=== PATIENT | female | born 1980 | race Caucasian/White ===

== ENCOUNTER → 2016-06-21 | Outpatient (CLI) | payer OTHER ==
[2016-06-21 10:38] LABS: CH 33.9; CHCM 34.7; HCT 36.5 % (34.0-46.0); HGB 12.7 gm/dL (11.4-16.0); MCH 34.3 pg (25.0-35.0); MCHC 34.9 g/dL (31.0-37.0); MCV 98.3 fL (80.0-100.0); Mean Platelet Volume 7.3; RBC 3.71 m/uL (3.80-5.40); RDW 13.2 % (11.5-15.5); WBC 7.9 k/uL (3.8-10.6)
== END | disposition home or self-care (01) ==
LOC: LABWHC1 09:20
PROVIDERS: ATTEND Obstetrics & Gynecology
DX: Z34.82 Encounter for supervision of other normal pregnancy, second trimester (principal); Z3A.00 Weeks of gestation of pregnancy not specified
CPT/HCPCS: 36415; 82950; 85027

== ENCOUNTER → 2016-08-09 | Outpatient (CLI) | payer OTHER ==
--- NOTE | 2016-08-09 14:50 | US ---
EXAMINATION TYPE: US OB anatomy transabd DATE OF EXAM: 08/09/2016 1:41 PM COMPARISON: NONE HISTORY: 36-year-old female with advanced Maternal Age OO.529 TECHNIQUE: Transabdominal scanning EXAM MEASUREMENTS: GESTATIONAL AGE / DATING Physician Established: (32 weeks/2 days) EDC: 10/02/2016 Dates by LMP: unknown Dates by First Scan: (32 weeks/1 days) EDC: 10/03/2016 Dates by Current Scan for: (32 weeks/3 days) EDC: 10/01/2016 SURVEY IUP: Single PLACENTA: Fundal PREVIA: No previa GUANACO: 9.7 cm (normal = 7.61 - 27.04) SCIENCE CONSULTANT NOTES: Oligohydramnios, by department standards. Office called with results given to Laurent dee. CERVICAL LENGTH (transabdominal: norm > 3.0cm): 3.2 cm BIOMETRY PRESENTATION: Vertex BPD: 8.3 cm 33 weeks / 2 days HC: 29.5 cm 32 weeks / 4 days AC: 28.5 cm 32 weeks / 4 days FL: 6.3 cm 32 weeks / 4 days ESTIMATED WEIGHT IN GRAMS: 2017 grams ESTIMATED WEIGHT IN LBS/OZS: 4 lbs. 7 oz. WEIGHT PERCENTAGE BASED ON ESTABLISHED DATE: 50 % HC/AC: 1.0 Normal FL/AC: 22 Normal HEART RATE: 126 bpm RHYTHM: Normal ANATOMY SEEN (within normal limits): Lateral Vent (< 1 cm) 0.5 cm Cisterna Magna (< 1.1 cm) 0.9 cm Cerebellum (varies with age) 4.5 cm Midline Falx Cavus Septi Pellucidi Four Chamber Heart Stomach Situs Nose / Lips Diaphragm Kidneys (bilateral) Bladder Three Vessel Cord Arms (bilateral) Legs (bilateral) ANATOMY NOT SEEN OR SUBOPTIMALLY VISUALIZED: due to head low position Choroid Plexus (bilateral) Cord Insert Outflow tracts: LVOT/RVOT Longitudinal Spine - skin line not delineated Transverse Spine SCIENCE CONSULTANT NOTES: Growth according to dates, office called with GUANACO results of 9.7 cm. IMPRESSION: 1. Single live intrauterine with established gestational age of 32 weeks 2 days. Current ul trasound biometry is concordant (32 weeks 3 days) placing the child at the 50th percentile for weight . 2. Note is made of GUANACO at the lower end of normal. 3. A number of structures on the survey were suboptimally visualized due to relatively advanced gestational age and crowding. Visualized structures appear normal. See above.
== END | disposition home or self-care (01) ==
LOC: RADUSWWP 12:52
PROVIDERS: ATTEND Obstetrics & Gynecology
DX: O36.63X0 Maternal care for excessive fetal growth, third trimester, not applicable or unspecified (principal); Z3A.32 32 weeks gestation of pregnancy
CPT/HCPCS: 76811

== ENCOUNTER 2016-09-30 05:56 | Inpatient (IN) | payer OTHER ==
--- NOTE | 2016-09-28 12:40 | P.HPOB ---
History of Present Illness H&P Date: 09/28/16 Chief Complaint: Patient is requesting induction of labor. This patient is a pleasant 36-year-old 4 para 2 female estimated date of confinement 10/03/2016 estimated gestational age 39-4/7 weeks who presents to labor and delivery for requested induction of labor. Patient's care is complicated by advanced maternal age. Patient declined genetic testing. Patient has been monitored with growth ultrasounds and nonstress test been reassuring. Patient has a favorable cervix at term and has requested delivery at this time. Review of Systems Constitutional: Denies chills, Denies fever Ears, nose, mouth and throat: Denies headache, Denies sore throat Cardiovascular: Denies chest pain, Denies shortness of breath Respiratory: Denies cough Gastrointestinal: Reports heartburn Genitourinary: Reports Menstruation: Reports amenorrhea Musculoskeletal: Denies myalgias Integumentary: Denies pruritus, Denies rash Neurological: Denies numbness, Denies weakness Psychiatric: Denies anxiety, Denies depression Endocrine: Denies fatigue, Denies weight change Past Medical History Past Medical History: No Reported History Additional Past Medical History / Comment(s): Patient is Rh- but so is her . No Rhogam has been given. History of Any Multi-Drug Resistant Organisms: None Reported Past Surgical History: Breast Surgery, Orthopedic Surgery Additional Past Surgical History / Comment(s): Patient has had foot surgery on the left foot. Patient's had a D&C. Patient has bilateral breast augmentation. Past Anesthesia/Blood Transfusion Reactions: No Reported Reaction Past Psychological History: No Psychological Hx Reported Smoking Status: Never smoker Past Alcohol Use History: None Reported Past Drug Use History: None Reported Medications and Allergies Home Medications Medication Instructions Recorded Confirmed Type Pnv,Calcium 72/Iron/Folic Acid 1 tab PO DAILY 09/28/16 09/28/16 History [ Plus Tablet] Allergies Allergy/AdvReac Type Severity Reaction Status Date / Time No Known Allergies Allergy Verified 09/28/16 12:37 Exam - OBG Physical Exam Abdomen: bowel sounds normal, no diffuse tenderness, no bruit present, no guarding noted, no hepatomegaly, no splenomegaly, no mass Vulva: both: normal Vagina: normal moisture, no discharge Cervix: no lesion (Cervix of the office was 3 cm and soft.), no discharge Uterus: enlarged (Fundal height is 37 cm.) Results blood work shows she is O-, rubella immune, RPR nonreactive, hepatitis B negative, Glucola was normal, ultrasounds have been normal, group B strep was negative she did not receive RhoGAM because her is Rh-. Assessment and Plan (1) Third trimester Narrative/Plan: This is a pleasant 36-year-old 4 para 2 female 39-4/7 weeks gestation who is admitted to labor and delivery for elective induction of labor. Plan is induction of labor and anticipate normal vaginal delivery. Status: Acute (2) Rh negative status during Status: Acute (3) Elective induction of labor planned Status: Acute
[2016-09-30] MEDS ORDERED: LACTATED RINGERS 1,000 ML IV SCH (06:24)
[2016-09-30] MEDS ORDERED: METHYLERGONOVINE 0.2 MG/ML 1 ML AMP IM PRN (06:24)
[2016-09-30] MEDS ORDERED: CARBOPROST TROMETHAMINE 250 MCG/ML 1 ML AMP IM PRN (06:24)
[2016-09-30] MEDS ORDERED: OXYTOCIN 20 UNITS/1000 ML NS 1,000 ML IV SCH (06:24)
[2016-09-30] MEDS ORDERED: OXYTOCIN 10 UNIT/ML 1 ML VIAL IM PRN (06:24)
[2016-09-30] MEDS ORDERED: LIDOCAINE 1% (PF) 10 MG/ML (30 ML SDV) SQ PRN (06:24)
[2016-09-30] MEDS ORDERED: TERBUTALINE 1 MG/ML VIAL SQ PRN (06:24)
[2016-09-30 06:35] LABS: Basophils % (A) 0 %; CH 34.7; CHCM 35.5; Eosinophils # (A) 0.1 k/uL (0-0.7); Eosinophils % (A) 2 %; HCT 40.7 % (34.0-46.0); HDW 2.71; HGB 13.8 gm/dL (11.4-16.0); Luc # (Auto) 0.11; Luc % (Auto) 1; Lymphocytes # (A) 1.9 k/uL (1.0-4.8); Lymphocytes % (A) 26 %; MCH 33.4 pg (25.0-35.0); MCV 98.2 fL (80.0-100.0); Mean Platelet Volume 7.1; Monocytes # (A) 0.4 k/uL (0-1.0); Monocytes % (A) 6 %; Neutrophils # (A) 4.9 k/uL (1.3-7.7); Neutrophils % (A) 65 %; RBC 4.14 m/uL (3.80-5.40); RDW 13.7 % (11.5-15.5); WBC 7.5 k/uL (3.8-10.6); WBC (Perox) 7.73
[2016-09-30] MEDS ORDERED: fentaNYL (PF) 50 MCG/ML 5 ML AMP ONE (08:00)
[2016-09-30] MEDS ORDERED: SODIUM CHLORIDE 0.9% 100 ML BAG ONE (08:00)
[2016-09-30] MEDS ORDERED: BUPIVACAINE (PF) 0.25% 30 ML VIAL ONE (08:00)
[2016-09-30] MEDS ORDERED: BUPIVACAINE (PF) 0.25% 25 ML, fentaNYL (PF) 200 MCG in SODIUM CHLORIDE 0.9% 71 ML EPIDURAL ONE (08:23)
[2016-09-30] MEDS ORDERED: ACETAMINOPHEN TAB 325 MG TAB PO PRN (10:26)
[2016-09-30] MEDS ORDERED: HYDROCORTISONE 2.5% RECTAL CREAM 30 GM TUBE RECTAL PRN (10:26)
[2016-09-30] MEDS ORDERED: diphenhydrAMINE 25 MG CAP PO PRN (10:26)
[2016-09-30] MEDS ORDERED: BENZOCAINE SPRAY 57GM TOPICAL PRN (10:26)
[2016-09-30] MEDS ORDERED: DIPH,PERTUS(ACELL)TETVAC-LF 0.5 ML VIAL IM ONE (10:26)
[2016-09-30] MEDS ORDERED: Acetaminophen-Codeine 300-30mg TAB PO PRN ×2 (10:26)
[2016-09-30] MEDS ORDERED: BISACODYL 10 MG SUPP RECTAL PRN (10:26)
[2016-09-30] MEDS ORDERED: WITCH HAZEL 1 EACH MED..PAD TOPICAL PRN (10:26)
[2016-09-30] MEDS ORDERED: ZOLPIDEM 5 MG TAB PO PRN (10:26)
[2016-09-30] MEDS ORDERED: SIMETHICONE 80 MG CHEWABLE PO PRN (10:26)
[2016-09-30] MEDS ORDERED: diphenhydrAMINE 50 MG/ML 1 ML VIAL IVP PRN (10:26)
[2016-09-30] MEDS ORDERED: SENNOSIDES-DOCUSATE SODIUM 1 EACH TAB PO SCH (10:26)
[2016-09-30] MEDS ORDERED: LANOLIN CREAM 5 GM TUBE TOPICAL PRN (10:26)
[2016-09-30] MEDS: IBUPROFEN 600 MG TAB PO PRN ×2 (10:51→17:37)
--- NOTE | 2016-09-30 18:17 | P.PROBDLV ---
Vaginal Delivery Note - . Vaginal Delivery Note: Normal vaginal delivery viable male infant Apgars 9 and 9 at 1003 hrs. Please see dictated H&P for intimate details of this patient's admission. Brief summary this is a pleasant 36-year-old 4 para 2 female 39-4/7 weeks gestation who is admitted to labor and delivery for requested induction of labor. Patient admission is 3 cm dilated has artificial rupture membranes for clear fluid. Labor is induced with Pitocin per protocol. Patient progresses and does get an epidural for pain control. Patient thereafter quickly gets to complete pushes the head to the perineum. Posterior perineum is infiltrated with 1% lidocaine and a midline episiotomy is made. At this time we have controlled delivery of the 's head over the perineum. Mouth and nares are bulb suctioned. There is no evidence of a nuchal cord. With gentle downward traction we then have delivery the anterior and posterior shoulder and rest this 's body. Is a vigorous viable male infant Apgars are 9 and 9 delivery time is 1003 hours. After delivery of the the umbilical cord is doubly clamped and cut appears to be trivascular. The infant is laid on the mother's abdomen. Placenta spontaneously delivered intact. Inspection of perineum shows a second-degree midline laceration is repaired with 3-0 Vicryl usual fashion. Excellent reapproximation is noted. Estimated blood loss is 100 mL. There are no complications. All counts are correct 3. Infant and mother stable delivery room.
[2016-10-01] MEDS: IBUPROFEN 600 MG TAB PO PRN ×2 (05:28→12:31)
--- NOTE | 2016-10-01 06:04 | P.PNOBGVD ---
Subjective - Subjective Patient reports: Reports appetite normal, Reports voiding normally, Reports pain well controlled, Reports ambulating normally : doing well Objective - Latest Vital Signs Latest vital signs: Vital Signs Temp Pulse Resp BP 10/01/16 00:00 98.3 F 75 14 98/55 09/30/16 20:00 98.5 F 63 16 113/68 09/30/16 16:00 97.3 F L 66 16 116/65 09/30/16 12:28 96.6 F L 68 16 130/66 09/30/16 11:45 68 16 118/68 09/30/16 11:15 64 16 122/57 09/30/16 11:00 76 16 131/70 09/30/16 10:45 88 16 125/78 09/30/16 10:30 74 16 123/76 09/30/16 10:15 97.2 F L 78 16 122/93 09/30/16 06:33 97.0 F L 64 18 126/79 Intake and Output 09/30/16 09/30/16 10/01/16 14:59 22:59 06:59 Output Total 100 Balance -100 Output: Estimated Blood Loss 100 Other: # Voids 1 1 - Exam Lungs: bilateral: normal Chest: Normal S1, Normal S2 Extremities: Present: normal Abdomen: Present: normal appearance, soft Uterus: Present: normal, firm Assessment and Plan (1) Third trimester Narrative/Plan: day #1. Patient is resting without complaints. Vital signs are stable and she is afebrile. Patient wishes to go home today. My impression this is a normal course. Plan is continue routine care and discharge home later this morning Current Visit: Yes Status: Acute Code(s): Z33.1 - STATE, INCIDENTAL SNOMED Code(s): 82189961 (2) Rh negative status during Current Visit: Yes Status: Acute Code(s): O09.899 - SUPERVISION OF OTHER HIGH RISK PREGNANCIES, UNSP TRIMESTER SNOMED Code(s): 007014968 (3) Elective induction of labor planned Current Visit: Yes Status: Acute Code(s): BPF2756 - SNOMED Code(s): 686193816
--- NOTE | 2016-10-01 06:06 | P.DS ---
Providers Date of admission: 09/30/16 05:56 Expected date of discharge: 10/01/16 Attending physician: Jeff Berg Primary care physician: Stated None - Discharge Diagnosis(es) (1) Third trimester Current Visit: Yes Status: Acute (2) Rh negative status during Current Visit: Yes Status: Acute (3) Elective induction of labor planned Current Visit: Yes Status: Acute Hospital Course: Please see dictated H&P for intimate details of this patient's admission. Brief summary this is a pleasant 36-year-old 4 para 2 female 39-4/7 weeks gestation admitted to labor and delivery for requested induction of labor. Patient quickly goes on to have a vaginal delivery viable male . Please see dictated delivery note. day #1 this patient is without complaints wishes to go home. Patient's felt be stable for discharge home follow up with me in 6 weeks. Procedures: Induction of labor and normal vaginal delivery. Patient Condition at Discharge: Good Plan - Discharge Summary New Discharge Prescriptions: New Acetaminophen-Codeine 300-30mg [Tylenol w/codeine #3] 1 - 2 each PO Q4HR PRN #30 tab PRN Reason: Mild Pain exceeding Tylenol Ibuprofen [Motrin] 600 mg PO Q6HR PRN #40 tab PRN Reason: Mild Pain Or Fever >= 100.5 No Action Pnv,Calcium 72/Iron/Folic Acid [ Plus Tablet] 1 tab PO DAILY Discharge Medication List Pnv,Calcium 72/Iron/Folic Acid [ Plus Tablet] 1 tab PO DAILY 09/28/16 [ History] Acetaminophen-Codeine 300-30mg [Tylenol w/codeine #3] 1 - 2 each PO Q4HR PRN # 30 tab 09/30/16 [Rx] Ibuprofen [Motrin] 600 mg PO Q6HR PRN #40 tab 09/30/16 [Rx] Follow up Appointment(s)/Referral(s): Jeff Berg MD [STAFF PHYSICIAN] - 11/11/16 9:15 am Patient Instructions/Handouts: Vaginal Delivery (DC) Activity/Diet/Wound Care/Special Instructions: No intercourse or anything per vagina for 6 weeks. Please call if any fever, chills, excessive vaginal bleeding, and/or abdominal pain. Discharge Disposition: HOME SELF-CARE
[2016-10-01 09:26] VITALS: BP 117/68; PULSE 72; RESP 16; TEMP 98.2
== END 2016-10-01 13:20 | disposition home or self-care (01) | DRG 775 ==
LOC: 4FBP 05:56
PROVIDERS: ADMIT Obstetrics & Gynecology; ATTEND Obstetrics & Gynecology
PROC: 10E0XZZ Delivery of Products of Conception, External Approach (ICD-10-PCS; principal; 2016-09-30)
PROC: 0KQM0ZZ Repair Perineum Muscle, Open Approach (ICD-10-PCS; 2016-09-30)
PROC: 3E033VJ Introduction of Other Hormone into Peripheral Vein, Percutaneous Approach (ICD-10-PCS; 2016-09-30)
PROC: 00HU33Z Insertion of Infusion Device into Spinal Canal, Percutaneous Approach (ICD-10-PCS; 2016-09-30)
PROC: 3E0R3CZ (ICD-10-PCS; 2016-09-30)
PROC: 3E0234Z Introduction of Serum, Toxoid and Vaccine into Muscle, Percutaneous Approach (ICD-10-PCS; 2016-09-30)
DX: O26.893 Other specified pregnancy related conditions, third trimester (principal); Z23 Encounter for immunization; Z37.0 Single live birth; Z3A.39 39 weeks gestation of pregnancy; Z67.41 Type O blood, Rh negative; O70.1 Second degree perineal laceration during delivery; Z79.899 Other long term (current) drug therapy
CPT/HCPCS: 85025; 88307; 90471; 90715

== ENCOUNTER → 2020-08-21 | Outpatient (CLI) | payer OTHER ==
[2020-08-21 19:20] LABS: Basophils # (A) 0.02 X 10*3/uL (0.00-0.10); Basophils % (A) 0.4 %; Eosinophils # (A) 0.03 X 10*3/uL (0.04-0.35); Eosinophils % (A) 0.7 %; HCT 39.2 % (37.2-46.3); HGB 13.1 g/dL (12.0-15.0); Lymphocytes # (A) 1.67 X 10*3/uL (0.90-5.00); Lymphocytes % (A) 36.5 %; MCH 32.3 pg (27.0-32.0); MCHC 33.4 g/dL (32.0-37.0); MCV 96.8 fL (80.0-97.0); Mean Platelet Volume 9.6 fL (9.5-12.2); Monocytes # (A) 0.33 X 10*3/uL (0.20-1.00); Monocytes % (A) 7.2 %; Neutrophils # (A) 2.52 X 10*3/uL (1.80-7.70); Platelet Count 223 X 10*3/uL (140-440); RBC 4.05 X 10*6/uL (4.10-5.20); RDW 12.3 % (11.5-14.5); WBC 4.58 X 10*3/uL (4.50-10.00)
[2020-08-22 03:28] LABS: ALT 14 U/L (8-44); AST 19 U/L (13-35); African American GFR (CKD) 140.3 (60.0-200.0); Albumin/Globulin Ratio 2.41 (1.60-3.17); Alkaline Phosphatase 38 U/L (41-126); Calcium 8.6 mg/dL (8.7-10.3); Carbon Dioxide 23.5 mmol/L (21.6-31.8); Chloride 111 mmol/L (96-109); Chol/HDL Ratio 2.28; Cholesterol 157 mg/dL (0-200); Globulin 1.7 g/dL (1.6-3.3); Glucose 85 mg/dL (70-110); Non-African American GFR(CKD) 121.1 (60.0-200.0); Potassium 4.3 mmol/L (3.5-5.5); Sodium 142 mmol/L (135-145); Total Bilirubin 0.5 mg/dL (0.2-1.2); Total Protein 5.8 g/dL (6.2-8.2); Triglycerides <50.0 mg/dL (0.0-149.0)
== END | disposition home or self-care (01) ==
LOC: LABWHC1 12:18
PROVIDERS: ATTEND Internal Medicine
DX: Z00.00 Encounter for general adult medical examination without abnormal findings (principal); E55.9 Vitamin D deficiency, unspecified
CPT/HCPCS: 36415; 80053; 80061; 82306; 84443; 85025

== ENCOUNTER → 2020-08-21 | Outpatient (CLI) | payer OTHER ==
--- NOTE | 2020-08-22 09:21 | MM ---
Reason for exam: screening (asymptomatic). History: Family history of breast cancer in maternal aunt. Retro-pectoral saline implants in both breasts, 2018. Physical Findings: A clinical breast exam by your physician is recommended on an annual basis and results should be correlated with mammographic findings. MG 3D Screen Mammo Imp/Cad Bilateral CC, MLO, and ID view(s) were taken. No prior studies available for comparison. There are scattered fibroglandular densities. There is no discrete abnormality. Bilateral implants are intact. ASSESSMENT: Benign, BI-RAD 2 RECOMMENDATION: Routine screening mammogram of both breasts in 1 year.
== END | disposition home or self-care (01) ==
LOC: RADMAMWWP 05-29 13:49
PROVIDERS: ATTEND Obstetrics & Gynecology
DX: Z12.31 Encounter for screening mammogram for malignant neoplasm of breast (principal); Z80.3 Family history of malignant neoplasm of breast
CPT/HCPCS: 77063; 77067

== ENCOUNTER → 2020-10-27 | Outpatient (CLI) | payer OTHER | END | disposition home or self-care (01) ==

== ENCOUNTER → 2020-12-09 | Outpatient (CLI) | payer OTHER ==
[2020-12-09 16:20] LABS: Basophils % (A) 1 %; Eosinophils # (A) 0.1 k/uL (0-0.7); Eosinophils % (A) 1 %; HCT 38.5 % (34.0-46.0); HGB 13.7 gm/dL (11.4-16.0); Lymphocytes # (A) 1.5 k/uL (1.0-4.8); Lymphocytes % (A) 27 %; MCHC 35.5 g/dL (31.0-37.0); MCV 95.8 fL (80.0-100.0); Mean Platelet Volume 6.7; Monocytes # (A) 0.3 k/uL (0-1.0); Monocytes % (A) 5 %; Neutrophils # (A) 3.7 k/uL (1.3-7.7); Neutrophils % (A) 65 %; Platelet Count 231 k/uL (150-450); RBC 4.02 m/uL (3.80-5.40); WBC 5.7 k/uL (3.8-10.6)
== END | disposition home or self-care (01) ==
LOC: LABPAT 15:49
PROVIDERS: ATTEND Orthopaedic Surgery
DX: Z01.812 Encounter for preprocedural laboratory examination (principal); M25.562 Pain in left knee
CPT/HCPCS: 80051; 85025

== ENCOUNTER → 2020-12-09 | Outpatient (CLI) | payer OTHER ==
--- NOTE | 2020-12-09 12:43 | MR ---
EXAMINATION TYPE: MR knee RT wo con DATE OF EXAM: 12/09/2020 COMPARISON: Outside right knee x-ray October 14, 2020 HISTORY: Right knee pain and swelling for 4 years. TECHNIQUE: Multiplanar, multisequence imaging of the right knee is performed without IV contrast. FINDINGS: MEDIAL MENISCUS: Some medial extrusion medial meniscus coronal image 19. Anterior and posterior horns are intact without tear. LATERAL MENISCUS: There is increased signal anterior horn lateral meniscus extending to articular case face. There is slight truncation or extension into central body. CRUCIATE LIGAMENTS: The anterior and posterior cruciate ligaments are intact. There is increased sign al in the distal anterior cruciate ligament seen best coronal image 19. COLLATERAL LIGAMENTS: The medial collateral ligament and lateral collateral ligament complex are inta ct and unremarkable. EXTENSOR MECHANISM: Visualized quadriceps and patellar tendons are intact. Increased fluid signal nancy p Hoffa's fat pad likely extension from ACL findings. EFFUSION: Small to moderate size suprapatellar joint effusion extends laterally. POPLITEAL CYST: No popliteal/maya cyst. TRICOMPARTMENT SPACES: Mild tricompartment joint space loss and mild spurring. CARTILAGE: Tricompartment articular cartilage preserved. BONE MARROW SIGNAL: Some heterogeneous T2 signal or edema central tibial plateau near the ACL inserti on. OTHER: Multi septated cystic change posterior distal femoral level at level of distal metaphysis med ial more prominent than lateral aspects with partial tearing of the origin of the medial head of beatris rocnemius is thought present sagittal image 11. IMPRESSION: 1. Oblique full thickness lateral meniscus meniscus with some extension into the central body. 2. Small to moderate size suprapatellar joint effusion extending laterally. 3. Mild tricompartment degenerative changes as detailed above. 4. Partial tearing and sprain injury of the distal ACL as detailed above. No full-thickness tear note d. 5. Posterior distal femoral ganglion cyst with partial tearing of the origin of the medial head of th e gastrocnemius tendon.
== END | disposition home or self-care (01) ==
LOC: RADMRIMAIN 11:37
PROVIDERS: ATTEND Orthopaedic Surgery
DX: S83.511A Sprain of anterior cruciate ligament of right knee, initial encounter (principal); S86.111A Strain of other muscle(s) and tendon(s) of posterior muscle group at lower leg level, right leg, initial encounter; M17.11 Unilateral primary osteoarthritis, right knee; M67.461 Ganglion, right knee

== ENCOUNTER 2020-12-18 11:52 | Day surgery (SDC) | payer OTHER ==
[2020-12-12 13:01] VITALS: BMI 20.9
--- NOTE | 2020-12-17 20:40 | HP ---
HISTORY AND PHYSICAL DATE OF SURGERY: 12/18/2020 Marilu Foote is a 40-year-old patient seen with progressive left knee pain. We discussed options for treatment. She elected to proceed with arthroscopy. Consent was obtained. PAST MEDICAL HISTORY: Noncontributory. SURGICAL HISTORY: Breast augmentation, D and C. DAILY MEDICATIONS: Ibuprofen. ALLERGIES: NONE. SOCIAL HISTORY: She denies tobacco use. PHYSICAL EVALUATION OF THE LEFT KNEE: Her range of motion is negative 3 to 120. Moderate effusion. Tenderness along the medial and lateral joint lines. Positive medial Natividad's. Positive lateral Natividad's. Ligaments stable. Hip rotation without pain. Distal neurovascular exam is intact. RADIOGRAPHS: Radiographs of the left knee revealed mild osteoarthritis. MRI of the left knee revealed medial and lateral meniscal tears with a large effusion. IMPRESSION: Internal derangement of left knee with medial and lateral meniscal tears. PLAN: Left knee arthroscopy with partial meniscectomy and debridement. MMODL / IJN: [id number] /
[~2020-12-18 11:52] MED LIST: DEXAMETHASONE SOD PHOSPHATE 4 MG/ML 1 ML VIAL IV ONE; LACTATED RINGERS 1,000 ML IV SCH; ONDANSETRON 4 MG/2 ML VIAL IVP ONE
[2020-12-18 12:19] VITALS: RESP 16
[2020-12-18] MEDS ORDERED: SCOPOLAMINE 1.5MG/72HR PATCH TRANSDERM ONE (12:36)
[2020-12-18] MEDS ORDERED: LIDOCAINE 1% INJ 10MG/ML (20 ML MDV) ONE (13:06)
[2020-12-18] MEDS ORDERED: fentaNYL (PF) 50 MCG/ML 2 ML AMP ONE (13:06)
[2020-12-18] MEDS ORDERED: MIDAZOLAM 2 MG/2 ML VIAL ONE (13:06)
[2020-12-18] MEDS ORDERED: PROPOFOL 10 MG/ML 20 ML VIAL IV ONE (13:06)
[2020-12-18] MEDS ORDERED: KETOROLAC 15 MG/ML 1 ML VIAL ONE (13:06)
[2020-12-18] MEDS ORDERED: BUPIVACAINE (PF) 0.25% 30 ML VIAL INTRAARTIC ONE (13:11)
--- NOTE | 2020-12-18 13:58 | P.OP ---
Date of Procedure: 12/18/20 Preoperative Diagnosis: Internal derangement left knee Postoperative Diagnosis: 1. Tear lateral meniscus left knee 2. Partial ACL tear left knee 3. Reactive synovitis medial, lateral and suprapatellar compartments left knee 4. 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 Grade 1 chondromalacia patella left knee Procedure(s) Performed: 1. Arthroscopic partial lateral meniscectomy left knee 2. Arthroscopic debridement partial ACL tear left knee 3. Arthroscopic partial synovectomy medial, lateral and suprapatellar compartments left knee 4. Arthroscopic chondroplasty lateral tibial plateau left knee 5. Arthroscopic chondroplasty patella left knee Anesthesia: TYRONEA, local Surgeon: Vishnu Arguelles Estimated Blood Loss (ml): 5 Pathology: none sent Condition: stable Disposition: PACU Indications for Procedure: 40-year-old patient seen with progressive left knee pain. After treatment options were discussed, she elected to proceed with arthroscopy. Operative Findings: See description of procedure Description of Procedure: Patient was taken to the operative suite. Patient underwent a general anesthetic by the department of anesthesia. Patient was given preoperative antibiotics. The left lower extremity was placed in a well-padded arthroscopic leg joe. The left leg was prepped and draped in the normal sterile orthopedic fashion. A lateral parapatellar and suprapatellar incision was made. Trochars were inserted. Arthroscopy was initiated. Suprapatellar pouch revealed diffuse thick reactive synovitis. The patellofemoral joint appeared to articulate congruently. There was grade 1 chondromalacia of the patella. The scope was guided into the medial gutter. No loose bodies or plica were identified. The scope was then guided into the medial compartment. A medial parapatellar incision was made. Trocar inserted followed by probe. The medial meniscus was probed and found to be stable. There was no significant chondromalacia present. There was thick reactive synovitis anteriorly. I introduced a motorized shaver and performed a partial synovectomy. Shaver was removed. There appeared be good decompression of the synovitis. Scope and probe were then guided into the intercondylar notch. There was partial tearing of the ACL. I introduced a motorized shaver and debrided the torn fibers. The residual ACL appeared somewhat lax however there were residual fibers represented about 50% of the ACL. The PCL was stable. The scope and probe were then guided into lateral compartment. There was a complex tear involving the anterior horn and midbody of the lateral meniscus. There were grade 2/3 chondral moist changes of the tibial plateau without osteochondral tears present. There was thick reactive synovitis anteriorly. I performed a partial lateral meniscectomy getting down to stable meniscal tissue. I performed a chondroplasty of the tibial plateau getting down to stable osteochondral tissue. I performed a partial synovectomy decompressing the reactive synovitis. The residual meniscus was stable with at this point quite diminutive. The residual osteochondral surface of the tibial plateau appeared stable. There was good decompression of the synovitis. The scope was in guided back into the suprapatellar compartment. I introduced a motorized shaver into the super patellar compartment. I debrided some piecemeal fragments of meniscus that I encountered. I performed a partial synovectomy decompressing the reactive synovitis within the suprapatellar compartment. I now performed a chondroplasty of the patella. The shaver was removed. There was good decompression of the synovitis. The residual osteochondral surface of the patella appeared stable. I took one more look on the entire knee, no residual debris. Instruments were now removed from the joint. The joint was infiltrated with .25% Marcaine. Steri-Strips were applied to the portal sites. Sterile dressings were applied. The patient was placed into a GARCIA hose. No tourniquet was utilized. The patient was awakened, transferred to a bed and taken to recovery stable satisfactory condition.
[2020-12-18 14:07] VITALS: TEMP 97
[2020-12-18] MEDS: HYDROmorphone 0.5 MG/0.5 ML SYRINGE IVP PRN ×2 (14:12→14:27)
[2020-12-18] MEDS ORDERED: LACTATED RINGERS 1,000 ML IV ONE (14:29)
[2020-12-18 15:01] VITALS: PULSE 75
[2020-12-18 15:19] VITALS: BP 125/84
== END 2020-12-18 15:59 | disposition home or self-care (01) ==
LOC: OR 11:52
PROVIDERS: ATTEND Orthopaedic Surgery
DX: M22.42 Chondromalacia patellae, left knee (principal); S83.282A Other tear of lateral meniscus, current injury, left knee, initial encounter; S83.512A Sprain of anterior cruciate ligament of left knee, initial encounter; M65.862 Other synovitis and tenosynovitis, left lower leg; M17.12 Unilateral primary osteoarthritis, left knee; F41.9 Anxiety disorder, unspecified; J45.990 Exercise induced bronchospasm; Z79.899 Other long term (current) drug therapy; Z98.890 Other specified postprocedural states
CPT/HCPCS: 29881; 29876; 81025; J2250; J1100; J2405; J0690; J2001; J3010; J1885; J2704; J1170

== ENCOUNTER → 2021-10-22 | Outpatient (CLI) | payer OTHER ==
--- NOTE | 2021-10-26 17:26 | MM ---
Reason for Exam: Screening (asymptomatic). Last mammogram was performed 1 year(s) and 2 month(s) ago. Patient History: Menarche at age 16. First Full-Term at age 30. Late child-bearing (after 30). Patient has history of breast feeding. 2018, Bilateral Implants. Maternal aunt had breast cancer, age 35. Risk Values: Tierra 5 year model risk: 0.8%. NCI Lifetime model risk: 12.4%. Prior Study Comparison: 08/21/2020 Bilateral Screening Mammogram, [facility]. Tissue Density: The breast tissue is heterogeneously dense. This may lower the sensitivity of mammography. Findings: Analyzed By CAD. There are retropectoral saline implants on both sides. Asymmetric density far posterior central left MLO view is more defined additional views are recommended. Otherwise, no significant change. Overall Assessment: Incomplete: need additional imaging evaluation, BI-RAD 0 Management: Special View Mammogram of the left breast. Diagnostic Breast Ultrasound of the left breast. 1. Additional views left breast to include spot 3-D MLO, 3-D lateral, and 3-D XCCL views. 2. Whole left breast ultrasound given the dense breast tissue. Electronically signed and approved by: Michela Rawls M.D. Radiologist
== END | disposition home or self-care (01) ==
LOC: RADMAMWWP 09:06
PROVIDERS: ATTEND Obstetrics & Gynecology
DX: Z12.31 Encounter for screening mammogram for malignant neoplasm of breast (principal); Z80.3 Family history of malignant neoplasm of breast
CPT/HCPCS: 77063; 77067

== ENCOUNTER → 2021-11-04 | Outpatient (CLI) | payer OTHER ==
--- NOTE | 2021-11-05 14:44 | USB ---
Reason for Exam: Additional evaluation requested from abnormal screening. Last screening mammogram was performed less than 1 month ago. Patient History: Menarche at age 16. First Full-Term at age 30. Late child-bearing (after 30). Patient has history of breast feeding. 2018, Bilateral Implants. Maternal aunt had breast cancer, age 35. Risk Values: Tierra 5 year model risk: 0.8%. NCI Lifetime model risk: 12.4%. Prior Study Comparison: 08/21/2020 Bilateral Screening Mammogram, [facility]. 10/22/2021 Bilateral MG 3D screen mammo imp/cad., [facility]. Tissue Density: Left: The breast tissue is extremely dense which could obscure a lesion on mammography. Findings: Analyzed By CAD. Mammogram No definitive new lesion on additional views. Background extremely dense tissue noted. Technique: Method: Whole Breast Handheld. Findings: The whole breast of the left breast and the axilla of the left breast were scanned. Whole left breast ultrasound including evaluation of subareolar and axillary regions shows partial visualization of the outer contour of known breast implant. No concerning solid or cystic mass or abnormal fluid collection is seen. Overall Assessment: Negative, BI-RAD 1 Assessment: MG 3D work up w/cad LT - Left: Negative, BI-RAD 1. US breast workup LT - Left: Negative, BI-RAD 1. Management: Screening Mammogram of both breasts in 1 year. Back on schedule. Some advise bilateral breast ultrasound surveillance in patients with background dense tissue. Results were given to the patient verbally at the time of exam. Electronically signed and approved by: Wade Perez M.D.
== END | disposition home or self-care (01) ==
LOC: RADMAMWWP 13:32
PROVIDERS: ATTEND Obstetrics & Gynecology
DX: R92.8 Other abnormal and inconclusive findings on diagnostic imaging of breast (principal); Z80.3 Family history of malignant neoplasm of breast
CPT/HCPCS: 77061; 77065

== ENCOUNTER → 2022-11-11 | Outpatient (CLI) | payer OTHER ==
[2022-11-11 13:45] LABS: ALT 13 U/L (8-44); AST 19 U/L (13-35); Albumin 4.2 d/dL (3.8-4.9); Albumin/Globulin Ratio 2.21 Ratio (1.60-3.17); Alkaline Phosphatase 43 U/L (41-126); BUN/Creat Ratio 20.71 Ratio (12.00-20.00); Blood Urea Nitrogen 14.5 mg/dL (9.0-27.0); Carbon Dioxide 27.3 mmol/L (21.6-31.8); Chloride 104 mmol/L (96-109); Chol/HDL Ratio 2.34 Ratio; Globulin 1.9 d/dL (1.6-3.3); Glucose 92 mg/dL (70-110); LDL Cholesterol,Calculated 93.3 mg/dL (0.0-131.0); Potassium 4.6 mmol/L (3.5-5.5); Sodium 139 mmol/L (135-145); Total Bilirubin 0.4 mg/dL (0.3-1.2); Total Protein 6.1 d/dL (6.2-8.2)
[2022-11-11 14:26] LABS: Basophils # (A) 0.02 X 10*3/uL (0.00-0.10); Basophils % (A) 0.4 %; Eosinophils # (A) 0.24 X 10*3/uL (0.04-0.35); Eosinophils % (A) 4.8 %; HCT 41.5 % (37.2-46.3); HGB 14.3 d/dL (12.0-15.0); Lymphocytes # (A) 1.57 X 10*3/uL (0.90-5.00); Lymphocytes % (A) 31.2 %; MCH 32.6 pg (27.0-32.0); MCHC 34.5 d/dL (32.0-37.0); MCV 94.7 FL (80.0-97.0); Mean Platelet Volume 9.4 FL (9.5-12.2); Monocytes # (A) 0.39 X 10*3/uL (0.20-1.00); Monocytes % (A) 7.7 %; NRBC Per 100 WBC 0 X 10*3/uL (0.00-0.01); Neutrophils # (A) 2.81 X 10*3/uL (1.80-7.70); Neutrophils % (A) 55.7 %; Platelet Count 240 X 10*3/uL (140-440); RBC 4.38 X 10*6/uL (4.10-5.20); RDW 12.1 % (11.5-14.5); WBC 5.04 X 10*3/uL (4.50-10.00)
== END | disposition home or self-care (01) ==
LOC: LABWHC1 08:08
PROVIDERS: ATTEND Internal Medicine
DX: Z00.00 Encounter for general adult medical examination without abnormal findings (principal); Z11.59 Encounter for screening for other viral diseases; I87.2 Venous insufficiency (chronic) (peripheral)
CPT/HCPCS: 36415; 80053; 80061; 82533; 84443; 85025; 86803

== ENCOUNTER → 2022-11-16 | Outpatient (CLI) | payer OTHER ==
--- NOTE | 2022-11-17 20:26 | MM ---
Reason for Exam: Screening (asymptomatic). Last mammogram was performed 1 year(s) and 1 month(s) ago. Patient History: Menarche at age 16. First Full-Term at age 30. Late child-bearing (after 30). Patient has history of breast feeding. 2018, Bilateral Implants. Maternal aunt had breast cancer, age 35. Last menstrual period: 10/29/2022 Risk Values: Tierra 5 year model risk: 0.8%. NCI Lifetime model risk: 12.2%. Prior Study Comparison: 08/21/2020 Bilateral Screening Mammogram, [facility]. 10/22/2021 Bilateral MG 3D screen mammo imp/cad., [facility]. 11/04/2021 Left MG 3D work up w/cad LT, [facility]. Tissue Density: The breast tissue is heterogeneously dense. This may lower the sensitivity of mammography. Findings: Analyzed By CAD. Bilateral retropectoral breast implants are present. There is asymmetric density or posterior left MLO view located centrally that is more defined from prior exams. It incompletely disperses on 3-D images. Further evaluation recommended. There is asymmetrically denser left breast tissue noted. Otherwise, no significant change. Overall Assessment: Incomplete: need additional imaging evaluation, BI-RAD 0 Management: Special View Mammogram of the left breast. Diagnostic Breast Ultrasound of the left breast. Additional views to include spot 3-D MLO and 3-D lateral views.. Additional whole left breast ultrasound given asymmetrically denser left breast tissue. [facility] will attempt to contact patient to return for supplemental views and ultrasound if indicated. Electronically signed and approved by: Michela Rawls M.D. Radiologist
== END | disposition home or self-care (01) ==
LOC: RADMAMWWP 10:48
PROVIDERS: ATTEND Internal Medicine
DX: Z12.31 Encounter for screening mammogram for malignant neoplasm of breast (principal); Z80.3 Family history of malignant neoplasm of breast
CPT/HCPCS: 77063; 77067

== ENCOUNTER → 2022-11-22 | Outpatient (CLI) | payer OTHER ==
--- NOTE | 2022-11-22 14:01 | MM ---
Reason for Exam: Additional evaluation requested from abnormal screening. Last screening mammogram was performed less than 1 month ago. Patient History: Menarche at age 16. First Full-Term at age 30. Late child-bearing (after 30). Patient has history of breast feeding. 2018, Bilateral Implants. Maternal aunt had breast cancer, age 35. Risk Values: Tierra 5 year model risk: 0.8%. NCI Lifetime model risk: 12.2%. Prior Study Comparison: 10/22/2021 Bilateral MG 3D screen mammo imp/cad., [facility]. 11/04/2021 Left MG 3D work up w/cad LT, [facility]. 11/16/2022 Bilateral MG 3D screen mammo imp/cad., [facility]. Tissue Density: Left: The breast tissue is heterogeneously dense. This may lower the sensitivity of mammography. Findings: Analyzed By CAD. Left breast implant. Area of concern compresses out. No new suspicious masses, calcifications or distortions. Overall Assessment: Negative, BI-RAD 1 Management: Diagnostic Breast Ultrasound of the left breast. Results were given to the patient verbally at the time of exam. Patient should continue monthly self-breast exams. A clinical breast exam by your physician is recommended on an annual basis. This exam should not preclude additional follow-up of suspicious palpable abnormalities. Note on Tierra scores and lifetime risk: 1. A Tierra score greater than 3% is considered moderate risk. If this is the case, consider specialist referral to assess eligibility for a risk reducing agent. 2. If overall lifetime risk for the development of breast cancer is 20% or higher, the patient may qualify for future screening with alternating mammogram and breast MRI. Electronically signed and approved by: Marlo Stover DO
--- NOTE | 2022-11-22 14:27 | USB ---
Reason for Exam: Additional evaluation requested from abnormal screening. Patient History: Menarche at age 16. First Full-Term at age 30. Late child-bearing (after 30). Patient has history of breast feeding. 2018, Bilateral Implants. Maternal aunt had breast cancer, age 35. Risk Values: Tierra 5 year model risk: 0.8%. NCI Lifetime model risk: 12.2%. Technique: Method: Whole Breast Handheld. Prior Study Comparison: 10/22/2021 Bilateral MG 3D screen mammo imp/cad., [facility]. 11/04/2021 Left MG 3D work up w/cad LT, [facility]. 11/16/2022 Bilateral MG 3D screen mammo imp/cad., [facility]. Findings: The whole breast of the left breast, the axilla of the left breast and the retroareolar of the left breast were scanned. Imaged: Ultrasound imaging of: Area of concern, retroareolar region and axilla. No evidence for organizing fluid collection or mass. Overall Assessment: Negative, BI-RAD 1 Management: Screening Mammogram of both breasts in 1 year. A clinical breast exam by your physician is recommended on an annual basis and results should be correlated with mammographic findings. This exam should not preclude additional follow-up of suspicious palpable abnormalities. Results were given to the patient verbally at the time of exam. Electronically signed and approved by: Marlo Stover DO
== END | disposition home or self-care (01) ==
LOC: RADMAMWWP 13:38
PROVIDERS: ATTEND Internal Medicine
DX: R92.8 Other abnormal and inconclusive findings on diagnostic imaging of breast (principal); Z80.3 Family history of malignant neoplasm of breast
CPT/HCPCS: 77061; 77065

== ENCOUNTER → 2022-12-06 | Outpatient (CLI) | payer OTHER ==
--- NOTE | 2022-12-06 16:55 | CA ---
Transthoracic Echo Report Name: Marilu Foote Age: 42 Gender: F : 1980 Exam Date: 12/06/2022 15:05 Exam Location: [facility] Ht (in): 65 Wt (lb): 133 Ordering Physician: Elgin Knox MD Attending/Referring Phys: Elgin Knox MD Process Safety Specialist Ninfa Peace, RD Procedure CPT: Indications: I87.2 VENOUS INSUFFICIENCY (CHRONIC) (PERIPHERAL) Cardiac Hx: Technical Quality: Good Contrast 1: Total Dose (mL): Contrast 2: Total Dose (mL): MEASUREMENTS (Male / Female) Normal Values 2D ECHO LV Diastolic Diameter PLAX 4.4 cm 4.2 - 5.9 / 3.9 - 5.3 cm LV Systolic Diameter PLAX 3.0 cm IVS Diastolic Thickness 0.9 cm 0.6 - 1.0 / 0.6 - 0.9 cm LVPW Diastolic Thickness 0.9 cm 0.6 - 1.0 / 0.6 - 0.9 cm LV Relative Wall Thickness 0.4 RV Internal Dim ED PLAX 2.4 cm LA Systolic Diameter LX 3.1 cm 3.0 - 4.0 / 2.7 - 3.8 cm LV Diastolic Volume MOD 4C 58.2 cm??? LV Systolic Volume MOD 4C 17.4 cm??? LV Ejection Fraction MOD 4C 70.1 % LV Cardiac Index MOD 4C 1492.9 cm???/min???m??? LV Diastolic Length 4C 7.2 cm LV Systolic Length 4C 5.6 cm LV Diastolic Volume MOD 2C 56.5 cm??? LV Systolic Volume MOD 2C 21.2 cm??? LV Ejection Fraction MOD 2C 62.4 % LV Cardiac Index MOD 2C 1291.0 cm???/min???m??? LV Diastolic Length 2C 8.0 cm LV Systolic Length 2C 6.6 cm LA Volume 36.2 cm??? 18 - 58 / 22 - 52 cm??? DOPPLER AV Peak Velocity 122.4 cm/s AV Peak Gradient 6.0 mmHg MV Area PHT 3.5 cm??? Mitral E Point Velocity 98.7 cm/s Mitral A Point Velocity 50.8 cm/s Mitral E to A Ratio 1.9 MV Deceleration Time 214.8 ms MV E' Velocity 10.0 cm/s Mitral E to MV E' Ratio 9.8 TR Peak Velocity 209.2 cm/s TR Peak Gradient 17.5 mmHg Right Ventricular Systolic Press 22.2 mmHg FINDINGS Left Ventricle Left ventricular ejection fraction is estimated at 60-65 %. Left ventricular cavity size normal. Left ventricular wall thickness normal. Normal left ventricular wall motion. Right Ventricle Normal right ventricular size. Right ventricular systolic pressure within normal limits. Right Atrium Normal right atrial size. Left Atrium Normal left atrial size. Mitral Valve Structurally normal mitral valve. Trace mitral regurgitation. Aortic Valve Trileaflet aortic valve. Trace aortic regurgitation. Tricuspid Valve Structurally normal tricuspid valve. Mild tricuspid regurgitation. Pulmonic Valve Structurally normal pulmonic valve. No pulmonic regurgitation. Pericardium No pericardial effusion. Aorta Normal size aortic root and proximal ascending aorta. CONCLUSIONS Normal LV function Previewed by: Dr. Alejandro Clayton MD (Electronically Signed) Final Date: 06 December 2022 16:54
== END | disposition home or self-care (01) ==
LOC: RADECHMAIN 14:58
PROVIDERS: ATTEND Internal Medicine
DX: I87.2 Venous insufficiency (chronic) (peripheral) (principal)
CPT/HCPCS: 93306

== ENCOUNTER → 2024-03-19 | Outpatient (CLI) | payer OTHER ==
--- NOTE | 2024-03-20 19:14 | MM ---
Reason for Exam: Screening (asymptomatic). Last mammogram was performed 1 year(s) and 4 month(s) ago. Patient History: Menarche at age 16. First Full-Term at age 30. Late child-bearing (after 30). Patient has history of breast feeding. 2018, Bilateral Implants. Maternal aunt had breast cancer, age 35. Last menstrual period: 03/10/2024 Risk Values: Tierra 5 year model risk: 0.9%. NCI Lifetime model risk: 12.1%. Prior Study Comparison: 11/04/2021 Left MG 3D work up w/cad LT, [facility]. 11/16/2022 Bilateral MG 3D screen mammo imp/cad., [facility]. 11/22/2022 Left MG 3D work up w/cad LT, [facility]. Tissue Density: The breasts are heterogeneously dense, which may obscure small masses. Findings: Analyzed By CAD. Bilateral retropectoral saline implants are redemonstrated. Asymmetric density posterior inferior right MLO view not clearly seen previously, likely not pulled into the field of view on prior studies. Additional asymmetric density posterior lateral left cc view appears more pronounced. This may represent a prominent island of tissue but further evaluation is recommended. Otherwise, no significant change. Overall Assessment: Incomplete: need additional imaging evaluation, BI-RAD 0 Management: Special View Mammogram of both breasts. Diagnostic Breast Ultrasound of both breasts. [facility] will attempt to contact patient to return for supplemental views and ultrasound if indicated. [facility], , 03/20/2024 7:11 PM. Electronically signed and approved by: Michela Rawls M.D. Radiologist
== END | disposition home or self-care (01) ==
LOC: RADMAMWWP 12:54
PROVIDERS: ATTEND Internal Medicine
DX: Z12.31 Encounter for screening mammogram for malignant neoplasm of breast (principal); Z80.3 Family history of malignant neoplasm of breast; R92.333 Mammographic heterogeneous density, bilateral breasts
CPT/HCPCS: 77063; 77067

== ENCOUNTER → 2024-03-29 | Outpatient (CLI) | payer OTHER ==
--- NOTE | 2024-03-29 10:58 | MM ---
Reason for Exam: Additional evaluation requested from abnormal screening. Last screening mammogram was performed less than 1 month ago. Patient History: Menarche at age 16. First Full-Term at age 30. Late child-bearing (after 30). Patient has history of breast feeding. 2018, Bilateral Implants. Maternal aunt had breast cancer, age 35. Risk Values: Tierra 5 year model risk: 0.9%. NCI Lifetime model risk: 12.1%. Prior Study Comparison: 11/22/2022 Left MG 3D work up w/cad LT, [facility]. 03/19/2024 Bilateral MG 3D screen mammo imp/cad., [facility]. Tissue Density: The breasts are heterogeneously dense, which may obscure small masses. Findings: Analyzed By CAD. On the right, the inferior posterior asymmetric density disperses. No persisting abnormality seen. On the left, unable to adequately image the lateral density due to far posterior positioning. Ultrasound recommended. Overall Assessment: Incomplete: need additional imaging evaluation, BI-RAD 0 Management: Diagnostic Breast Ultrasound of the left breast. [facility], , 03/29/2024 10:55 AM. Electronically signed and approved by: Michela Rawls M.D. Radiologist
--- NOTE | 2024-03-29 11:15 | USB ---
Patient History: Menarche at age 16. First Full-Term at age 30. Late child-bearing (after 30). Patient has history of breast feeding. 2018, Bilateral Implants. Maternal aunt had breast cancer, age 35. Risk Values: Tierra 5 year model risk: 0.9%. NCI Lifetime model risk: 12.1%. Technique: Method: Targeted. Doppler: Color. Patient Position: Supine. Prior Study Comparison: 11/16/2022 Bilateral MG 3D screen mammo imp/cad., [facility]. 11/22/2022 Left MG 3D work up w/cad LT, [facility]. 03/19/2024 Bilateral MG 3D screen mammo imp/cad., [facility]. Findings: The lateral section of the breast of the left breast, the axilla of the left breast and the retroareolar of the left breast were scanned. Targeted ultrasound lateral half of the left breast from 12:00 to 6:00 including scanning of the subareolar region and axilla. Scattered dense tissue is present. Underlying breast implant. No solid or cystic lesion or axillary adenopathy. Overall Assessment: Probably benign, BI-RAD 3 Management: Diagnostic Mammogram of the left breast in 6 months. A clinical breast exam by your physician is recommended on an annual basis and results should be correlated with mammographic findings. This exam should not preclude additional follow-up of suspicious palpable abnormalities. Results were given to the patient verbally at the time of exam. [facility], , 03/29/2024 11:13 AM. Electronically signed and approved by: Michela Rawls M.D. Radiologist
== END | disposition home or self-care (01) ==
LOC: RADMAMWWP 09:57
PROVIDERS: ATTEND Internal Medicine
DX: R92.8 Other abnormal and inconclusive findings on diagnostic imaging of breast (principal); R92.333 Mammographic heterogeneous density, bilateral breasts; Z80.3 Family history of malignant neoplasm of breast
CPT/HCPCS: 77062; 77066

== ENCOUNTER → 2024-09-26 | Outpatient (CLI) | payer OTHER | END | disposition home or self-care (01) | LOC: RADMAMWWP 10:38 | PROVIDERS: ATTEND Obstetrics & Gynecology | DX: Z53.9 Procedure and treatment not carried out, unspecified reason (principal) ==